=== PATIENT | female | born 1945 | race Caucasian/White ===

== ENCOUNTER 2022-01-30 21:49 | Observation (INO) ==
[2022-01-30 22:24] LABS: Basophils % 0.5 % (0.0-0.8); Eosinophils # 0.1 10*3/uL (0.0-0.87); Eosinophils % 1.2 % (0.00-10.9); Hematocrit 40.2 VOL% (35.7-47.0); Hemoglobin 13.2 GM/DL (12.0-16.0); Immature Granulocytes % 0.3 %; Immature Granulocytes Absolute 0.02 #; Lymphocytes % 30.6 % (21.3-54.2); Mean Corpuscular HGB Conc 32.8 GM/DL (32-36); Mean Corpuscular Volume 98.3 FL (87-102); Monocytes # 0.4 10*3/uL (0.11-0.8); Monocytes % 5.7 % (1.7-12.7); Neutrophils % 61.7 % (38.7-73.9); Platelet Count 215 T/CUMM (130-400); Red Blood Count 4.09 MC/CUMM (3.8-5.5); Red Cell Distribution Width 12.1 % (9.3-17.3); White Blood Count 6.5 T/CUMM (4-12)
[2022-01-30 22:46] LABS: Alanine Aminotransferase 17 U/L (13-56); Albumin 3.7 G/DL (3.4-5.0); Alkaline Phosphatase 69 U/L (45-117); Aspartate Amino Transferase 15 U/L (0-37); Bilirubin,Total < 0.39 MG/DL (0.20-1.00); Blood Urea Nitrogen 26 MG/DL (7-18); Carbon Dioxide 26 MMOL/L (21-32); Chloride 109 MMOL/L (98-107); Glucose 115 MG/DL (74-106); Osmolality,Calculated 288.1 MOS/KG (273-304); Potassium 3.8 MMOL/L (3.5-5.1); Sodium 142 MMOL/L (136-145); Total Protein 6.6 G/DL (6.4-8.2)
[2022-01-30] MEDS ORDERED: ONDANSETRON 4 MG/2 ML VIAL IV STA (23:01)
[2022-01-30] MEDS ORDERED: MORPHINE 2 MG/1 ML SYRINGE IV STA (23:01)
[2022-01-30] MEDS ORDERED: fentaNYL 100 MCG/2 ML VIAL IV STA (23:53)
[2022-01-30] MEDS ORDERED: ALUM/MAG/SIMETH/LIDO VISC 1:1 30 ML BOTTLE PO STA (23:54)
[2022-01-31] MEDS ORDERED: HYDROmorphone 1 MG/1 ML SYRINGE IV PRN (01:50)
[2022-01-31] MEDS ORDERED: ONDANSETRON 4 MG/2 ML VIAL IV PRN (01:50)
[2022-01-31] MEDS ORDERED: NICOTINE 21 MG/24 HR PATCH TRANSDERM PRN (01:50)
[2022-01-31] MEDS ORDERED: DEXAMETHASONE 10 MG/1 ML VIAL IV ONE (06:40)
[2022-01-31] MEDS ORDERED: CETIRIZINE 10 MG TABLET PO PRN (06:42)
[2022-01-31] MEDS: KETOROLAC 30 MG/1 ML VIAL IM PRN ×2 (09:21→15:12)
[2022-01-31] MEDS: IPRATROPIUM 0.06% NASAL SPRAY 15 ML BOTTLE BOTH NARES SCH ×3 (11:36→20:40)
[2022-02-01 04:59] VITALS: BP 103/66
[2022-02-01] MEDS: IPRATROPIUM 0.06% NASAL SPRAY 15 ML BOTTLE BOTH NARES SCH (08:48)
[2022-02-01 09:04] LABS: Basophils % 0.1 % (0.0-0.8); Eosinophils % 0.1 % (0.00-10.9); Hematocrit 36.4 VOL% (35.7-47.0); Hemoglobin 12.2 GM/DL (12.0-16.0); Immature Granulocytes % 0.4 %; Immature Granulocytes Absolute 0.03 #; Lymphocytes # 1.3 10*3/uL (1.4-4.0); Lymphocytes % 15.1 % (21.3-54.2); Mean Corpuscular HGB Conc 33.5 GM/DL (32-36); Mean Corpuscular Volume 96.3 FL (87-102); Mean Platelet Volume 9.8 FL (9.6-12.0); Monocytes # 0.4 10*3/uL (0.11-0.8); Monocytes % 4.8 % (1.7-12.7); Neutrophils % 79.5 % (38.7-73.9); Platelet Count 187 T/CUMM (130-400); Red Blood Count 3.78 MC/CUMM (3.8-5.5); White Blood Count 8.5 T/CUMM (4-12)
[2022-02-01 09:19] LABS: Calcium 8.9 MG/DL (8.5-10.1); Osmolality,Calculated 289.4 MOS/KG (273-304); Potassium 3.9 MMOL/L (3.5-5.1)
[2022-02-01] MEDS ORDERED: AMOXICILLIN/CLAV 500 MG TABLET PO SCH (13:00)
[2022-02-01] MEDS ORDERED: AZITHROMYCIN 250 MG TABLET PO SCH (13:00)
== END 2022-02-01 11:58 | disposition home or self-care (01) ==
LOC: N.ED 21:49 → N.EDINP 21:49 → N.TELEN 01-31 04:10
PROVIDERS: ADMIT Emergency Medicine; ATTEND Emergency Medicine